=== PATIENT | female | born 1980 | race Caucasian/White ===

== ENCOUNTER 2021-10-26 12:22 | Outpatient (CLI) | payer OTHER, SELFPAY ==
--- NOTE | 2021-10-26 12:42 | XRR_ITS ---
PROCEDURE INFORMATION: Exam: XR Right Knee Exam date and time: 10/26/2021 12:42 PM Age: 41 years old Clinical indication: Pain; Knee; Right; Patient HX: No known injury; Additional info: Acute right knee pain TECHNIQUE: Imaging protocol: XR Right knee. Views: 3 views. COMPARISON: No relevant prior studies available. FINDINGS: Bones/joints: Normal. Soft tissues: Normal. XR/XR knee RT 3V* [id number] IMPRESSION: No acute findings.
== END 2021-10-26 12:23 | disposition home or self-care (01) ==
LOC: RAD 12:35
PROVIDERS: PCP Family Medicine; Visit Provider Family Medicine
DX: Z13.6 Encounter for screening for cardiovascular disorders (principal); M25.561 Pain in right knee; L65.9 Nonscarring hair loss, unspecified; E66.01 Morbid (severe) obesity due to excess calories; R23.2 Flushing
CPT/HCPCS: 73562; 80053; 80061; 83001; 83036; 84443; 85025

== ENCOUNTER → 2021-10-27 13:51 | Outpatient (BNVA) | payer OTHER, SELFPAY | PROVIDERS: Visit Provider Family Medicine | DX: R23.2 Flushing (principal) | CPT/HCPCS: 82670 ==

== ENCOUNTER 2022-07-02 11:09 | Outpatient (CLI) | payer OTHER, SELFPAY ==
--- NOTE | 2022-07-02 11:20 | MM_ITS ---
WS: [id number] Bilateral screening 3D tomosynthesis digital mammogram, 07/02/2022 Clinical Data: SCREEN Comparison: None. Findings: The breast parenchymal pattern shows heterogeneous density. No spiculated masses or clustered calcifi cations are seen. There are no secondary signs of carcinoma. There is a 1.7 cm spicer-shaped density wi th a smooth border in the lateral aspect of the right breast at the 10:00 position. This is seen on b oth the CC and MLO views. MM/[place] [id number] Impression: 1. 1.7 cm well bordered density which probably represents an intramammary lymp h node. 2. Recommend right breast ultrasound sound of the lateral aspect. BIRADS: 0-Incomplete: Need additional imaging evaluation FOLLOW UP: See Report The CAD inventory checker was used.
== END 2022-07-02 11:10 | disposition home or self-care (01) ==
LOC: RAD 11:10
PROVIDERS: PCP Nurse Practitioner Family; Visit Provider Nurse Practitioner Family
DX: Z12.31 Encounter for screening mammogram for malignant neoplasm of breast (principal)
CPT/HCPCS: 77063; 77067

== ENCOUNTER 2022-07-30 12:22 | Outpatient (CLI) | payer OTHER, SELFPAY ==
--- NOTE | 2022-07-30 | US_ITS ---
WS: [id number] ULTRASOUND RIGHT BREAST HISTORY: ABNORMAL MAMMO COMPARISON: Mammogram 07/02/2022 TECHNIQUE: 2-D and Doppler. There is a normal-appearing lymph node at 10:00, 4 cm from the nipple surrounded by dense fibroglandu lar tissue. Lymph node measures 10 x 8 x 7 mm. This does correspond and size and location to the mamm ographic abnormality. There is an additional cyst at 9:00, 2 cm from nipple measuring 7 x 7 x 4 mm. US/US breast RT limited* [id number] IMPRESSION: BI-RADS: 2-Benign FOLLOW-UP: 1 Year Follow-up Return to annual screening mammography.
== END 2022-07-30 12:23 | disposition home or self-care (01) ==
LOC: RAD 12:23
PROVIDERS: PCP Nurse Practitioner Family; Visit Provider Nurse Practitioner Family
DX: R92.8 Other abnormal and inconclusive findings on diagnostic imaging of breast (principal)
CPT/HCPCS: 76642

== ENCOUNTER 2024-02-15 15:25 | Outpatient (CLI) | payer OTHER, SELFPAY ==
--- NOTE | 2024-02-15 16:02 | XR_ITS ---
WS: [id number] XR shoulder LT min 2V* [id number] REASON FOR EXAM: Chronic left shoulder pain FINDINGS: No fracture or focal bone lesion. The acromioclavicular joint is narrowed with mild subchondral sclerosis. Normal alignment of the acro mioclavicular joint. Glenohumeral joint space is not optimally visualized. There does not appear to be significant narrowi ng. The glenoid and humeral head appear normal. XR/XR shoulder LT min 2V* [id number] IMPRESSION: Mild osteoarthritis in the acromioclavicular joint. The remainder of the should er joint is unremarkable.
== END 2024-02-15 15:26 | disposition home or self-care (01) ==
PROVIDERS: PCP Nurse Practitioner Family; Visit Provider Physician Assistant
DX: M25.512 Pain in left shoulder (principal)
CPT/HCPCS: 73030

== ENCOUNTER → 2024-03-20 09:52 | Outpatient (BNVA) | payer OTHER, SELFPAY | PROVIDERS: PCP Nurse Practitioner Family; Referring Provider Physician Assistant; Visit Provider Physician Assistant | DX: M25.512 Pain in left shoulder; M75.42 Impingement syndrome of left shoulder | CPT/HCPCS: 73030 ==

== ENCOUNTER 2024-06-08 07:31 | Outpatient (CLI) | payer OTHER, SELFPAY ==
--- NOTE | 2024-06-08 08:00 | MR_ITS ---
WS: [id number] MRI LEFT SHOULDER HISTORY: left shoulder pain COMPARISON: Radiographs 03/20/2024 TECHNIQUE: Multiplanar sequences of the shoulder joint are submitted. Mild hypertrophic bone and soft tissue at the AC joint with mild encroachment upon the supraspinatus tendon and muscle. Small amount of fluid in the AC joint. There is a small amount of fluid extending into the subacromial and subdeltoid bursa. There is a very tiny osteophyte along the distal undersurf sara of the acromion with minimal impingement. No os acromion. Biceps tendon remains in the bicipital groove. No rotator cuff muscle atrophy or edema. No rotator cuff tendon tears. There is very minimal tendinop athy in the distal supraspinatus tendon. There is a very subtle area of increased T2 signal at the ba se of the superior labrum seen only on a few images of the coronal sequences. No fractures or marrow edema. Normal position of the humeral head at the glenoid. MR/MR shoulder LT wo con* [id number] IMPRESSION: 1. Mild AC joint osteoarthritis. There is a small amount of fluid in the subac romial subdeltoid bursa and mild inflammatory changes at the AC joint. 2. No rotator cuff tear or muscle atrophy. 3. Subtle area of increased signal in the superior labrum seen only on a few s equences. Highly suspicious for superior labral tear.
== END 2024-06-08 07:32 | disposition home or self-care (01) ==
PROVIDERS: PCP Nurse Practitioner Family; Visit Provider Physician Assistant
DX: M75.42 Impingement syndrome of left shoulder (principal); R93.7 Abnormal findings on diagnostic imaging of other parts of musculoskeletal system
CPT/HCPCS: 73221

== ENCOUNTER 2024-11-29 10:13 | Day surgery (SDC) | payer OTHER, SELFPAY ==
[2024-11-29] VITALS (10 sets, daily range): BP systolic 99–164; BP diastolic 71–109; PULSE 75–94; RESP 15–18; TEMP 36.2–36.4; O2SAT 94–100; BMI 47.4
[2024-11-29] MEDS: ketorolac 30 mg/mL INJ IVP (11:02)
[2024-11-29] MEDS: acetaminophen 1,000 MG/100 ML PIGGYBACK 400 MG IV (11:02)
[2024-11-29] MEDS: scopolamine 1 mg PATCH 1 PATCH TRANSDERMA (11:03)
[2024-11-29] MEDS: sodium chloride 0.9% 1,000 ML 30 ML IV (11:05)
--- NOTE | 2024-11-29 11:55 | W.PM.OPSFHP ---
Same Day Surgery H&P Indication for Procedure/HPI DATE OF PROCEDURE: November 29, 2024 CHIEF COMPLAINT/INDICATIONFOR SURGICAL PROCEDURE: Left shoulder superior labral tear, subacromial impingement, mild AC joint arthritis PREOP DIAGNOSIS: Left shoulder superior labral tear, subacromial impingement, mild AC joint PLANNED PROCEDURE: Operation Date: 11/29/24 11:55 Proposed Procedures p Shoulder Arthroscopy(Left) - John Gagnon, DO s Subacromial Decompression(Left) - John Wittatt, DO s SLAP Repair(Left) - John Kalin, DO s Bicep Tenodesis(Left) - John Wittatt, DO Medications/Allergies* Home Medications ?Medication ?Instructions ?Recorded ?Confirmed ?Type acetaminophen 325 mg capsule 325 mg PO QID PRN Pain 10/26/21 11/28/24 History Allergies/Adverse Reactions Allergy/AdvReac Type Severity Reaction Status Date / Time sumatriptan (From Imitrex) Allergy Severe ALGY-Anaphy Verified 11/28/24 10:00 laxis Sulfa (Sulfonamide Allergy Mild ADR-Vomitin Verified 11/28/24 10:00 Antibiotics) g tramadol Allergy Mild ADR-Headach Verified 11/28/24 10:00 e Current Medications: Generic Name Dose Route Start Last Admin Trade Name Freq PRN Reason Stop Dose Admin Sodium Chloride 1,000 mls @ 30 mls/hr 11/29/24 10:30 11/29/24 11:05 Sodium Chloride 0.9% IV 11/30/24 10:29 30 mls/hr .Q24H NEW Administration Pertinent History/Comorbid Conditions* Surgical History (Updated 10/26/21 @ 10:54 by Mariya Awad DO) S/P partial hysterectomy Still has her left ovary. At age 34 due to endometriosis. Status post hysterectomy Status post knee surgery Scope on left knee in 2019. Tore her meniscus Social History Smoking and tobacco/nicotine status: never used tobacco/nicotine Alcohol intake: former Substance/Drug Use: never Pertinent Exam Findings alert, oriented x 3, operative site marked and procedure specific exam findings Please refer to detailed orthopedic examination on 10/17/2024 Left Shoulder -Tender to palpation-over AC joint, biceps tendon -Range of motion-limited ROM with pain at end range of motion active 0-130 with passive 130-170 -Rotator cuff strength-internal and external strength 5 out of 5 -Jobes test-positive -Speed's Test-positive -O'Briens test-Positive -Loyd impingement-positive -Empty can test-positive -Radial pulse 2+, normal cap refill under 2 seconds and patient can wiggle fingers. -Sensation to hand intact Recommendations Surgery/Procedure today Other Plans: Plan to proceed to the OR today for a left shoulder diagnostic and surgical arthroscopy with subacromial decompression, possible SLAP repair versus biceps tenodesis, possible distal clavicle excision. Patient understands the ins and outs procedure the risk benefits complication alternatives surgery. Risk of surgery include but not limited to make a better make it worse injury nerves vessels or tendons, failure of repairs, arthrofibrosis, Rogelio deformity, persistent pain and further surgeries. Understanding risks with surgery all questions have been answered this time patient elects proceed with surgical invention all questions answered Coding Level of Care Code Acute Code for Chg Fwd
--- NOTE | 2024-11-29 12:15 | ANES.PREANE2 ---
Pre-Anesthetic Assessment Height/Weight: Height 5 ft 6 in Weight 294 lb Temp Pulse Resp BP Pulse Ox O2 Del Method 97.1 F L 94 18 164/109 100 Room Air 11/29/24 10:50 11/29/24 10:50 11/29/24 10:50 11/29/24 11:03 11/29/24 10:50 11/29/24 10:50 Preop Diagnosis: Left shoulder superior labral tear, subacromial impingement, mild AC joint Operation Date: 11/29/24 11:55 Proposed Procedures p Shoulder Arthroscopy(Left) - John Brooks, DO s Subacromial Decompression(Left) - John Kalin, DO s SLAP Repair(Left) - John Brooks, DO s Bicep Tenodesis(Left) - John Kalin, DO Was Beta Maria M taken within 24 hours: N/A Was Clonidine taken within 24 hours: N/A Social No alcohol and No tobacco Exam alert, oriented x 3, clear to auscultation bilaterally and regular rate & rhythm Airway Submandibular: within normal limits Cervical ROM: within normal limits Mallampati: Class II Dentition: full Anesthetic Plan ASA status: 3 Anesthesia: General and Regional (specify below) Other: No prior issues with anesthesia NPO since yesterday evening History of hypertension. Not on any antihypertensives. Preop BP 164/109 Denies any pulmonary issues METs greater than 4 BMI 47.5 Plan for general anesthesia with preop nerve block Medications/Allergies Home Medications ?Medication ?Instructions ?Recorded ?Confirmed ?Last Taken ?Type acetaminophen 325 mg capsule 325 mg PO QID PRN Pain 10/26/21 11/28/24 Unknown History hydrocodone 5 mg-acetaminophen 325 1 tab PO Q6H PRN pain 5 days #20 11/29/24 Unknown Rx mg tablet tabs Allergies Allergy/AdvReac Type Severity Reaction Status Date / Time sumatriptan (From Imitrex) Allergy Severe ALGY-Anaphy Verified 11/28/24 10:00 laxis Sulfa (Sulfonamide Allergy Mild ADR-Vomitin Verified 11/28/24 10:00 Antibiotics) g tramadol Allergy Mild ADR-Headach Verified 11/28/24 10:00 e Current Medications Generic Name Dose Route Start Last Admin Trade Name Freq PRN Reason Stop Dose Admin Sodium Chloride 1,000 mls @ 30 mls/hr 11/29/24 10:30 11/29/24 11:05 Sodium Chloride 0.9% IV 11/30/24 10:29 30 mls/hr .Q24H NEW Administration PFSH Anesthesia Surgical History S/P partial hysterectomy Still has her left ovary. At age 34 due to endometriosis. Status post hysterectomy Status post knee surgery Scope on left knee in 2019. Tore her meniscus Social History Smoking and tobacco/nicotine status: never used tobacco/nicotine Alcohol intake: former Substance/Drug Use: never Data Anesthesia Cardiac Studies: No Data to Display
--- NOTE | 2024-11-29 12:17 | ANES.PROC ---
Anesthesia Procedures Procedure/Date: 11/29/24 Nerve Block ^: Nerve Block 1: Main Anesthesia: other (100 mcg fentanyl and 2 mg Versed) Time Out Performed: Yes Consent: requested by attending/covering physician and from patient Nerve block location: interscalene Anesthesia monitors applied: pulse oximetry, EKG, BP cuff and oxygen Nerve block position: supine Anesthetic Used: ropivicaine 0.5% Amount of anesthesia used (mL): 30 Ultrasound used to: recognize landmarks Nerve Stimulator Used?: Yes Interscalene/Femoral BLK: other needle (pjunk 4inch) and visualize local anesthetic spread Injection: neg aspiration of heme Patient Tolerated Procedure: well Complications: none Additional Comments: decadron 4mg
[2024-11-29] MEDS: ceFAZolin 3,000 MG in sodium chloride 0.9% (plus) 100 ML 200 MG IV (12:23)
[2024-11-29] MEDS: EPINEPHrine 1 mg/mL INJ 2 MG XX (13:15)
--- NOTE | 2024-11-29 13:53 | W.PM.BPON ---
Date of Procedure: 11/29/2024 Surgeon: John Gagnon DO Material Preparation Worker(s): Jairon Gagnon PA-C Procedure(s) performed: Left shoulder diagnostic and surgical arthroscopy with biceps tenodesis Left shoulder diagnostic and surgical arthroscopy with labral debridement Left shoulder diagnostic and surgical arthroscopy with subscapularis rotator cuff tendon debridement Left shoulder diagnostic and surgical arthroscopy with subacromial decompression (bursectomy/acromioplasty) Left shoulder diagnostic and surgical arthroscopy with AC joint resection (distal clavicle excision) Findings of the procedure(s): Patient was found to have a superior labral tear with inflammation around the bicep tendon and unstable bicep anchor at this point time given her age elected to proceed with a biceps tenodesis as we talked about the patient labral debridement was then performed did have small fraying of the subscapularis and tendon but overall was grossly intact she just underwent gentle debridement of this also underwent a subacromial decompression AC joint resection tolerated this well without issues or complications taken PACU stable condition Estimated blood loss: 10 mL Specimen(s) removed: None Post-operative diagnosis: Left shoulder SLAP tear, bicep tendinitis, partial subscapularis tendon tear less than 10%, subacromial impingement, AC joint arthritis
--- NOTE | 2024-11-29 13:55 | P.OP_ITS ---
Operative Report Date of procedure: November 29, 2024 Surgeon: John Gagnon DO Global Logistics Analyst: Jairon Gagnon PA-C: PA was necessary for assistance in this case with shoulder positioning to execute the procedure, assistance with instrumentation, as well as implant fixation when necessary, assist with wound closure and dressing application. Procedure: Preop Dx: Left shoulder superior labral tear, subacromial impingement, mild AC joint arthritis Post-op diagnosis:? Left shoulder SLAP tear, bicep tendinitis, partial subscapularis tendon tear less than 10%, subacromial impingement, AC joint arthritis Procedure done: Left shoulder diagnostic and surgical arthroscopy with biceps tenodesis Left shoulder diagnostic and surgical arthroscopy with labral debridement Left shoulder diagnostic and surgical arthroscopy with subscapularis rotator cuff tendon debridement Left shoulder diagnostic and surgical arthroscopy with subacromial decompression (bursectomy/acromioplasty) Left shoulder diagnostic and surgical arthroscopy with AC joint resection (distal clavicle excision) Surgeon: John Gagnon DO Estimated blood loss: [10 ]mL IV fluids: See anesthesia record Implants: Arthrex Biceps tenodesis loop n tack kit Complications: None Condition: stable Disposition: same day Brief History: Patient been seen and worked up in the outpatient setting for?Left?shoulder?pain.? Pt had an MRI which showed findings below.? Patient's failed conservative treatment and has weakness.? We talked about treatment options far as nonoperative and operative intervention..? We talked about risk benefits complication alternatives surgical nonsurgical treatment options.? Understanding risk of surgery pt agrees to proceed with surgical intervention.? All questions have been answered at this time.? Patient elects proceed with surgery and consent obtained in preop for left shoulder diagnostic and surgical arthroscopy with subacromial decompression, possible SLAP repair versus biceps tenodesis, possible distal clavicle excision. MR/MR shoulder LT wo con* [id number] IMPRESSION: 1. Mild AC joint osteoarthritis. There is a small amount of fluid in the subacromial subdeltoid bursa and mild inflammatory changes at the AC joint. 2. No rotator cuff tear or muscle atrophy. 3. Subtle area of increased signal in the superior labrum seen only on a few sequences. Highly suspicious for superior labral tear. Procedure: Patient seen evaluated in the preoperative holding area.? Consent reviewed and signed with patient.? Once again reviewed patient's MRI results as well as? planned surgical intervention.? Correct extremity marked.? Patient seen evaluated by anesthesia department received regional anesthesia.? Once ready for surgery was taken back to the operative suite.? Patient then subsequently underwent anesthesia per the anesthesia department was transported onto the OR table.? Patient was then placed into a lateral decubitus position with a beanbag and was appropriately secured to the bed.? All bony prominences well-padded.? Patient then had the?Left?upper extremity was then prepped and draped in standard orthopedic fashion.? Patient received appropriate preoperative antibiotics.? Final timeout performed. The?Left?upper extremity was then held in hanging from traction utilizing sterile technique.? Next started with standard diagnostic and surgical arthroscopy with posterior portal position introduced arthroscope into the glenohumeral joint.? Visualized the glenohumeral joint I then introduced a spinal needle within the rotator cuff interval to confirm appropriate anterior portal placement.? Once this was confirmed I then made my small incision and then introduced my arthroscopic shaver into the glenohumeral joint.? After flushing the joint fluid, was clearly evident patient had biceps tendon tendinitis as well as Superior labral tear. Patient had appreciable unstable biceps anchor most pronounced in the superior labrum. Given there appears to be healthy intra-articular tendon plan was for an intra-articular biceps tenodesis at the superior portion as it enters the intertubercular groove. Thermal wand introduced into the rotator interval. I then release of the rotator interval to have appropriate visualization and the ability to perform biceps tenodesis. At this point I established a purple passport cannula which was introduced. Next I performed an Arthrex loop and tap biceps tenodesis. Passer was then made around the tendon luggage tag stitch around and then thru the tendon per arthrex protocol. I then utilized a thermal wand to release the biceps tendon at the anchor to perform with tenotomy. I then loaded with suture onto an Arthrex 4.75 swivel lock suture anchor. A punch was then placed in appropriate position at the entry point into the intertubercular groove just superior to the subscapul karishma tendon. Punch was then introduced to the appropriate depth. The suture loaded on the swivel lock was then advanced held under appropriate tension and shoulder lock anchor was then advanced and had excellent fixation. Excess suture was then cut biceps tenodesis was complete. I then utilized a thermal wand to seal the edges of the superior labrum. Next I evaluated the subscapularis tendon has roughly small 10% flap tearing and underwent gentle debridement as the fibers was grossly intact. ?Next there was labral tearing at biceps anchor and circumferential.? ? I then subsequently utilized a a arthroscopic shaver and thermal wand to perform a labral debridement.? This point time I then visualized the glenohumeral joint.? The glenohumeral joint was found to have grade 1-2? chondromalacia throughout.? Axillary pouch was free of loose bodies from viewing the posterior portal.? Next a visualized the rotator cuff superiorly and there was found to be intact with no evidence of tear. pt has a negative escape bubble sign. This completed my work within the glenohumeral joint all fluid was suctioned free of the joint.? ?Next I reintroduced the arthroscope posteriorly.? And went to the subacromial space.? I established my lateral working portal at the site of which my spinal needle was marking of the rotator cuff tear.? Thermal wand was then introduced laterally and then I subsequently performed extensive bursectomy of the subacromial space.? Patient had a large anterior bone spur.? At this point time, I moved to view the AC joint which was much more arthritic and narrow with bone on bone articulation, at this point i elected to proceed with AC resection as this is a pain generator. I proceeded with my AC joint resection thermal wand was used and track to the anterior edge of the acromion and then tracked all the way to the AC joint.? Once identified the AC joint this was very arthritic in nature.? Thermal wand was placed anteriorly to establish appropriate plane for AC joint resection.? Once appropriate margins and anterior inferior and anterior capsule was released I then introduced arthroscopic shaver and a bur and performed AC joint resection of both the acromion to cope plane at the AC joint and a distal clavicle resection was then performed totaling 1 cm in size and was confirmed.? This completed my AC joint resection and I then introduced the arthr oscopic shaver laterally while continuing to view posteriorly.? I then performed an acromioplasty to complete my subacromial decompression prior to evaluating rotator cuff.? At this point in time I then visualized the rotator cuff once again this was found to be intact and pristine no evidence of rotator cuff tear on the bursal side I switched my scope to the lateral portal to once again confirmed an intact rotator cuff. ?Next I then introduced the arthroscopic shaver posteriorly to complete my subacromial decompression appropriate complaining all the way up to the lateral edge of the acromion.? This completed the surgery.? All fluid was suctioned from the?shoulder.? All instruments were removed.? The lateral incision was then closed with A nylon stitches.? As well as the portal sites closed with portal nylon stitches.? Xeroform 4 x 4's ABD and tape was then applied to the?Left?shoulder?and was placed into a?shoulder?abduction pillow sling for biceps tenodesis protocol.? Patient was then awakened from anesthesia and then taken back to PACU in stable condition.? Patient tolerated procedure without any issues. Disposition: Patient taken back in stable condition recovering well.? Dressings on in place clean dry and intact.? Will be nonweightbearing to the?Left?upper extremity.? Follow biceps tenodesis protocol.? Patient to follow-up with ortho in the office in 2 weeks.? Patient will receive appropriate discharge instruction as well as pain medication postoperatively.? All questions answered.? We will contact the office for any questions or concerns.
--- NOTE | 2024-11-29 14:24 | PM.PACU ---
PACU note Narrative: Patient is a 45-year-old female underwent a left shoulder diagnostic surgical arthroscopy. Patient transferred to PACU in stable condition. Pain is well controlled. shoulder Dressing on , dry and in place. Patient's operative arm is in a shoulder immobilizer. Patient is awake and alert and able to respond to my questions accordingly. Patient's fingers are warm with good perfusion. Normal cap refill under 2 seconds. Unable to assess further range of motion in arm due to sling. Unable to assess sensation or motor due to residual anesthesia block. Exam: awake Disposition: discharged
--- NOTE | 2024-11-29 15:49 | ANE.PACU2 ---
Inpatient post-anesthesia follow up: Airway intact: Yes Vital signs: Temperature 97.3 F Pulse Rate 80 Respiratory Rate 16 Blood Pressure 126/77 Pulse Oximetry 96 Oxygen Delivery Me thod Room Air Oxygen Flow Rate Fraction of Inspir ed Oxygen Hydration adequate: Yes Nausea and vomiting: No Pain level: 1 Mental status: Baseline
== END 2024-11-29 15:49 | disposition home or self-care (01) ==
PROVIDERS: Visit Provider Student in an Organized Health Care Education/Training Program
PROC: (CPT 29805; principal; 2024-11-29 11:55)
PROC: (CPT 29826; 2024-11-29 11:55)
PROC: (CPT 23430; 2024-11-29 11:55)
DX: S43.432A Superior glenoid labrum lesion of left shoulder, initial encounter (principal); M75.42 Impingement syndrome of left shoulder; M19.012 Primary osteoarthritis, left shoulder; S46.012A Strain of muscle(s) and tendon(s) of the rotator cuff of left shoulder, initial encounter; M94.212 Chondromalacia, left shoulder; Z88.8 Allergy status to other drugs, medicaments and biological substances; Z88.2 Allergy status to sulfonamides; Z88.5 Allergy status to narcotic agent; X58.XXXA Exposure to other specified factors, initial encounter
CPT/HCPCS: 29828; 29824; 29826; C1713; J0131; J0171; J0690; J1100; J1885; J2250; J2405; J2704; J3010; J3490; J7030; J9999

== ENCOUNTER 2024-12-11 05:00 | Outpatient (RCR) | payer OTHER, SELFPAY | END 2025-01-09 23:59 | disposition home or self-care (01) | LOC: MPT 05:00 | PROVIDERS: Visit Provider Student in an Organized Health Care Education/Training Program | DX: Z47.89 Encounter for other orthopedic aftercare (principal) | CPT/HCPCS: 97110; 97140; 97161; G0283 ==

== ENCOUNTER → 2025-03-26 10:30 | Outpatient (BNVA) | payer OTHER, SELFPAY | PROVIDERS: PCP Family Medicine; Visit Provider Student in an Organized Health Care Education/Training Program | DX: Z98.890 Other specified postprocedural states (principal); S43.432D Superior glenoid labrum lesion of left shoulder, subsequent encounter; X58.XXXD Exposure to other specified factors, subsequent encounter | CPT/HCPCS: 73030 ==